=== PATIENT | female | born 1995 | race Caucasian/White ===

== ENCOUNTER → 2025-05-11 | Outpatient (CLI) | payer OTHER ==
[2025-05-11 13:52] LABS: GLUCOSE CHALLENGE TEST 1 HOUR 91 MG/DL (LESS THAN 140)
[2025-05-11 14:02] LABS: PLATELET COUNT, AUTOMATED 318 10^3/uL (150-450)
[2025-05-11 14:27] LABS: HIV 1&2 SCREEN NEGATIVE (NEGATIVE)
[2025-05-11 14:35] LABS: HEPATITIS C VIRUS ABY INDEX < 0.02 INDEX (<0.8)
[2025-05-11 14:48] LABS: Trichomonas vaginalis (AMP) NOT DETECTED (NEGATIVE)
[2025-05-11 15:12] LABS: GC DNA AMPLIFICATION NEGATIVE (NEGATIVE)
== END ==
LOC: M PLALAB 09:48
PROVIDERS: ATTEND Obstetrics & Gynecology
DX: Z34.82 Encounter for supervision of other normal pregnancy, second trimester (principal)

== ENCOUNTER 2025-08-01 10:32 | Outpatient (CLI) | payer OTHER ==
[~2025-08-01] VITALS: Ht 172.7 cm; Wt 91.7 kg
[~2025-08-01 10:32] MED LIST: PREN1CHW6 PO
[2025-08-01] MEDS ORDERED: ACET-897 PO (10:58)
[2025-08-01] MEDS ORDERED: TUMS500C PO (10:58)
[2025-08-01] MEDS ORDERED: VENTAER INH (10:58)
[2025-08-01] MEDS ORDERED: FLON1SPR NARES (10:58)
[2025-08-01] MEDS ORDERED: HOME MED LIST COMPLETE! XX SCH (11:00)
[2025-08-01 11:05] VITALS: BP 115/71; O2SAT 98
[2025-08-01 11:17] VITALS: BP_DIAS 80
[2025-08-01 11:18] VITALS: BP_DIAS 80
[2025-08-01 11:49] LABS: PLATELET COUNT, AUTOMATED 320 10^3/uL (150-450)
[2025-08-01 11:51] VITALS: BP 134/74
[2025-08-01 12:12] LABS: TOTAL PROTEIN,RANDOM URINE 9.4 MG/DL (0.0-14.0)
[2025-08-01 12:17] LABS: LDH LACTATE DEHYDROGENASE 159 U/L (120-246)
[2025-08-01 12:18] LABS: ALT/SGPT 14 U/L (7.0-40); AST/SGOT 17 U/L (<34); CREATININE FOR GFR 0.75 MG/DL (0.55-1.30); GLOMERULAR FILTRATION RATE > 90.0 (>60)
[2025-08-01 12:46] LABS: HIV 1&2 SCREEN NEGATIVE (NEGATIVE)
[2025-08-01 12:59] LABS: HEPATITIS C VIRUS ABY INDEX < 0.02 INDEX (<0.8)
== END 2025-08-01 13:50 | disposition home or self-care (01) ==
LOC: M LDO 10:32
PROVIDERS: ATTEND Advanced Practice Midwife
DX: O26.893 Other specified pregnancy related conditions, third trimester (principal); O34.219 Maternal care for unspecified type scar from previous cesarean delivery; O99.820 Streptococcus B carrier state complicating pregnancy; R03.0 Elevated blood-pressure reading, without diagnosis of hypertension; B95.1 Streptococcus, group B, as the cause of diseases classified elsewhere; Z3A.40 40 weeks gestation of pregnancy; O48.0 Post-term pregnancy
CPT/HCPCS: 36415; 59025; 82247; 82570; 83615; 84156; 84450; 84460; 84550; 85027; 86780; 86803; 87389; G0463

== ENCOUNTER 2025-08-02 20:46 | Inpatient (IN) | payer OTHER ==
[~2025-08-02] VITALS: Ht 172.7 cm; Wt 97.6 kg
[~2025-08-02 20:46] MED LIST changes: +ACET-897 PO; +FLON1SPR NARES; +TUMS500C PO; +VENTAER INH
[2025-08-02 20:58] VITALS: BP 138/81; O2SAT 98
[2025-08-02] MEDS ORDERED: TRANEXAMIC ACID INJection 1,000 MG in NS 100 ML IV PRN (21:15)
[2025-08-02] MEDS ORDERED: CARBOPROST TROMETHAMINE 250 MCG/ML AMP IM PRN (21:15)
[2025-08-02] MEDS ORDERED: LR 1,000 ML IV SCH (21:15)
[2025-08-02] MEDS: PENICILLIN G POTASSIUM 5 MU IV 5 MU in DEXTROSE 5% (D5W) MINI-BAG PLU 100 ML IV STA (21:44)
[2025-08-02 21:46] LABS: PLATELET COUNT, AUTOMATED 313 10^3/uL (150-450)
[2025-08-02 22:48] LABS: HEPATITIS C VIRUS ABY INDEX < 0.02 INDEX (<0.8)
[2025-08-03] VITALS (12 sets, daily range): BP systolic 103–134; BP diastolic 51–82; TEMP 98.6; O2SAT 96–99
[2025-08-03] MEDS: OXYTOCIN DRIP 30 UNITS in IV 1 EA IV PRN (01:44)
[2025-08-03] MEDS ORDERED: PEN G POT 3,000,000 UNIT/50 ML 3,000,000 UNIT in IV 1 EA IV SCH ×2 (02:00)
[2025-08-03] MEDS: LIDOCAINE 1% MDV 20 ML VIAL INFIL PRN (02:00)
[2025-08-03] MEDS ORDERED: LR 1,000 ML IV SCH (02:15)
[2025-08-03] MEDS ORDERED: RHOGAM 300MCG (1500IU) INJ IM SCH (02:15)
[2025-08-03] MEDS ORDERED: ONDANSETRON 4MG/2ML VIAL IV PRN (02:15)
[2025-08-03] MEDS ORDERED: CALCIUM CARBONATE 500 MG CHEW U/D PO PRN (02:15)
[2025-08-03] MEDS ORDERED: METHYLERGONOVINE MALEATE 0.2 MG TAB PO PRN (02:15)
[2025-08-03] MEDS ORDERED: ACETAMINOPHEN 325 MG TAB PO PRN (02:15)
[2025-08-03] MEDS ORDERED: OXYTOCIN DRIP 30 UNITS in IV 1 EA IV SCH (02:15)
[2025-08-03] MEDS ORDERED: ACETAMINOPHEN 500 MG TAB PO PRN (02:15)
[2025-08-03] MEDS: KETOROLAC 30 MG/ML 1 ML VIAL IV SCH (02:28)
[2025-08-03] MEDS: METHYLERGONOVINE MALEATE 0.2 MG/ML 1 ML VIAL IM PRN (03:11)
[2025-08-03] MEDS: DIBUCAINE 1% OINTMENT 30 GM TOP PRN (09:40)
[2025-08-03] MEDS: PRENATAL VITAMINS CHEWABLE TABLET PO SCH (09:40)
[2025-08-03] MEDS: DOCUSATE SODIUM 100 MG CAPSULE PO PRN (09:40)
[2025-08-03] MEDS: ANUSOL HC CREAM 30 GM TOP PRN (09:40)
[2025-08-04] MEDS: IBUPROFEN 800 MG TAB PO SCH (04:10)
[2025-08-04 06:00] VITALS: BP 111/61; O2SAT 98
[2025-08-04] MEDS ORDERED: IBUP600T42 PO (09:00)
[2025-08-05] MEDS ORDERED: MEASLES,MUMPS,RUBELLA VACCINE INJ (MMR-II) SC.IMMUN ONE (09:00)
== END 2025-08-04 14:45 | disposition home or self-care (01) | DRG 807 ==
LOC: M LDO 20:46 → M LDI 21:06 → M OBS 08-03 03:43
PROVIDERS: ADMIT Obstetrics & Gynecology; ATTEND Obstetrics & Gynecology
PROC: 10E0XZZ Delivery of Products of Conception, External Approach (ICD-10-PCS; principal; 2025-08-03)
PROC: 0HQ9XZZ Repair Perineum Skin, External Approach (ICD-10-PCS; 2025-08-03)
DX: O34.211 Maternal care for low transverse scar from previous cesarean delivery (principal); Z37.0 Single live birth; Z3A.40 40 weeks gestation of pregnancy; O48.0 Post-term pregnancy; O99.824 Streptococcus B carrier state complicating childbirth; Z79.899 Other long term (current) drug therapy; O70.0 First degree perineal laceration during delivery